=== PATIENT | female | born 1995 | race American Indian/Alaskan Native ===

== ENCOUNTER 2018-09-20 15:12 | Emergency (ER) | payer BC ==
[2018-09-20 15:44] VITALS: BP 126/87
[2018-09-20] MEDS ORDERED: TORADOL IM ONE (15:48)
--- NOTE | 2018-09-20 16:05 | Emergency Department Report ---
Chief Complaint: Neck Pain/Injury Stated Complaint: NECK PAIN Time Seen by Provider: 09/20/18 15:42 - HPI History of Present Illness: 22 y/o comes in for neck pain that is worst with turning her head that started yesterday after stretching. Patient reports that she took Tylenol with out relief. She on took 1 dose yesterday. She reports that she needs a work excuse since she was not able to go to work. Patient denies any trauma no fever or chills. - ROS Review of Systems: neck pain worst with turn head. No trauma. No nausea or vomiting. No fver or chills. No recent travels. - Exam Vital Signs: Vital Signs 09/20/18 15:39 Temperature 98.4 F Pulse Rate 69 Respiratory 16 Rate Blood Pressure 126/87 O2 Sat by Pulse 98 Oximetry Physical Exam: AxO times 3. NAD. MSE screening note: Focused history and physical exam performed. Due to findings the following was ordered: Patient offered toradol 30mg. ED Disposition for MSE Clinical Impression: Strain of neck muscle Qualifiers: Encounter type: initial encounter Qualified Code(s): S16.1XXA - Strain of muscle, fascia and tendon at neck level, initial encounter Disposition: DC-01 TO HOME OR SELFCARE Is pt being admited?: No Does the pt Need Aspirin: No Condition: Stable Instructions: Muscle Strain (ED) Additional Instructions: Take pain medication as prescribed. Prescriptions: Ibuprofen [Motrin 800 MG tab] 800 mg PO Q8HR PRN #30 tablet PRN Reason: Pain , Severe (7-10) Forms: Work/School Release Form(ED)
== END 2018-09-20 16:21 | disposition home or self-care (01) ==
LOC: ED 15:12
DX: S16.1XXA Strain of muscle, fascia and tendon at neck level, initial encounter (principal); X58.XXXA Exposure to other specified factors, initial encounter; Y93.89 Activity, other specified; Y92.89 Other specified places as the place of occurrence of the external cause; Y99.8 Other external cause status
CPT/HCPCS: 96372; 99282; J1885